=== PATIENT | male | born 1995 | race African-American/Black ===

== ENCOUNTER 2016-08-05 14:11 | Emergency (ER) | payer SELFPAY ==
[~2016-08-05] VITALS: Ht 182.9 cm; Wt 100.0 kg
[2016-08-05 14:13] VITALS: BP 139/90; PULSE 86; RESP 20; TEMP 100; O2SAT 98
[2016-08-05] MEDS ORDERED: ALBU0.08 NEB ×2 (15:39→17:12)
--- NOTE | 2016-08-05 15:55 | PD ---
HPI Chief Complaint: Cold / Flu Symptoms Time Seen by Provider: 15:53 Travel History International Travel<30 days: No Contact w/Intl Traveler<30days: No Traveled to known affect area: No History of Present Illness HPI 21-year-old male presents to the emergency department for evaluation of flulike symptoms that started 2 days ago. Patient reports cough, congestion, intermittent fevers, body aches. He has reports sore throat. He denies any chest pain. No abdominal pain. No nausea or vomiting. He has no chronic medical problems and takes no prescribed medications. Patient did not get the flu vaccination this season. He denies any other complaints. PFSH Past Medical History Hx Anticoagulant Therapy: No Asthma: Yes Autoimmune Disease: No Cardiovascular Problems: No Chemotherapy: No Cerebrovascular Accident: No Diabetes: No Diminished Hearing: No Genitourinary: No Musculoskeletal: No Neurologic: No Psychiatric: No Respiratory: No Immunizations Current: Yes Past Surgical History Hysterectomy: No Other Surgery: No Social History Alcohol Use: Yes (OCC) Tobacco Use: Yes (2-3 CIG ) Substance Use: No Allergies-Medications (Allergen,Severity, Reaction): Coded Allergies: No Known Allergies (Verified , 08/05/16) Reported Meds & Prescriptions Reported Meds & Active Scripts Active Tamiflu (Oseltamivir Phosphate) 75 Mg Cap 75 Mg PO BID 5 Days Reported Albuterol Neb (Albuterol Sulfate) Unknown Strength Neb Unknown Dose NEB Q4HR NEB PRN Review of Systems Except as stated in HPI: all other systems reviewed are Neg Physical Exam Narrative GENERAL: Well-developed well-nourished male patient, ambulatory. Temp is 100.0. SKIN: Warm and dry. HEAD: Normocephalic. Atraumatic. ENT: Mucosa pink and moist. No erythema or exudates. No uvular edema. No uvular , palatal, or tonsillar deviation. Airway patent. Nasal turbinates appear normal without nasal blood, purulent drainage or septal hematoma. Bilateral tympanic membranes are clear without erythema or perforation. EYES: No scleral icterus. No injection or drainage. NECK: Supple, trachea midline. No JVD or lymphadenopathy. CARDIOVASCULAR: Regular rate and rhythm without murmurs, gallops, or rubs. RESPIRATORY: Breath sounds equal bilaterally. No accessory muscle use. Lungs sounds are clear to auscultation. GASTROINTESTINAL: Abdomen soft, non-tender, nondistended. MUSCULOSKELETAL: No cyanosis, or edema. BACK: Nontender without obvious deformity. No CVA tenderness. Data Data Last Documented VS Vital Signs Date Time Temp Pulse Resp B/P Pulse Ox O2 Delivery O2 Flow Rate FiO2 08/05/16 17:10 17 08/05/16 14:13 100.0 86 139/90 98 Room Air Orders Ibuprofen (Motrin) (08/05/16 16:00) Influenzae A/B Antigen (08/05/16 15:53) Group A Rapid Strep Screen (08/05/16 15:53) Chest, Single Ap (08/05/16 ) Strep Culture (Group A) (08/05/16 16:00) MDM Medical Decision Making Medical Screen Exam Complete: Yes Emergency Medical Condition: Yes Medical Record Reviewed: Yes Interpretation(s) Last Impressions Chest X-Ray 08/05/16 0000 Signed Impressions: Service Date/Time: Friday, August 05, 2016 16:02 - CONCLUSION: No acute findings. Heart size appears mildly enlarged. Pankaj Arroyo MD Differential Diagnosis Influenza versus strep pharyngitis versus URI versus pneumonia Narrative Course 21-year-old male presents to the emergency Department for medication flulike symptoms for 2 days. Strep swab, influenza swab, chest x-ray are ordered and pending. Strep swab is negative. Influenza is positive for influenza A. Chest x-ray shows no acute disease. Patient will be discharged with a prescription for Tamiflu. He is instructed to take Tylenol/Ibuprofen OTC as needed and follow up with a primary care physician. Patient is also requesting refill of albuterol for his nebulizer machine. The patient was discharged in stable condition with instructions, including return instructions and follow up instructions. Diagnosis Primary Impression: Influenza A Referrals: Primary Care Physician call for appointment Patient Instructions: General Instructions, Influenza (ED) Departure Forms: Tests/Procedures, Work Release Enter return to work date: Aug 08, 2016 Additional Instructions: Take Tamiflu as directed until gone. Tylenol/ibuprofen for pain/fever. Drink plenty of fluids. Follow-up with your primary care physician. Return to the emergency department for any acute worsening of symptoms. Med/Other Pt SpecificInfo: Prescription(s) given Scripts Albuterol Neb 2.5 Mg/3 Ml Neb2.5 Mg NEB Q4HR NEB PRN (SOB/WHEEZING) #60 NEBULE Ref 0 While awake Prov:Haley Wellington 08/05/16 Oseltamivir (Tamiflu)75 Mg Cap75 Mg PO BID 5 Days Ref 0 Prov:Haley Wellington 08/05/16 Disposition: 01 DISCHARGE HOME Condition: Stable Haley Wellington Aug 05, 2016 15:55
[2016-08-05] MEDS ORDERED: IBUPROFEN 800 MG TAB PO ONE (16:00)
--- NOTE | 2016-08-05 16:42 | RADRPT ---
EXAM DATE/TIME: 08/05/2016 16:02 [facility] COMPARISON: No previous studies available for comparison. INDICATIONS : Flu symptoms. Congestion. MEDICAL HISTORY : None. SURGICAL HISTORY : None. ENCOUNTER: Initial ACUITY: 3 days PAIN SCORE: 6/10 LOCATION: Bilateral chest FINDINGS: A single view of the chest demonstrates the lungs to be symmetrically aerated without evidence of mas s, infiltrate or effusion. The cardiomediastinal contours are prominent but stable. Osseous structur es are intact. CONCLUSION: No acute findings. Heart size appears mildly enlarged. Pankaj Arroyo MD on August 05, 2016 at 16:40 Board Certified Radiologist. This report was verified electronically.
[2016-08-05] MEDS ORDERED: OSEL75 PO (17:09)
[2016-08-05 17:10] VITALS: RESP 17
== END 2016-08-05 17:49 | disposition home or self-care (01) ==
LOC: NEPB 14:11
DX: Z72.0 Tobacco use (principal); J10.89 Influenza due to other identified influenza virus with other manifestations
CPT/HCPCS: 71010; 87081; 87804; 87880; 99283

== ENCOUNTER 2017-01-01 22:09 | Emergency (ER) | payer SELFPAY ==
[~2017-01-01] VITALS: Ht 182.9 cm; Wt 115.4 kg
[~2017-01-01 22:09] MED LIST: ALBU0.08 NEB; OSEL75 PO
[2017-01-01 22:14] VITALS: BP 132/70; PULSE 78; RESP 14; TEMP 98.4; O2SAT 97
--- NOTE | 2017-01-01 23:13 | PD ---
HPI Chief Complaint: Cold / Flu Symptoms Time Seen by Provider: 23:04 Travel History International Travel<30 days: No Contact w/Intl Traveler<30days: No Traveled to known affect area: No History of Present Illness HPI The patient is a 21-year-old male that complains of a cough, sore throat and rhinorrhea for one day. He states he took some Motrin and Tylenol and feels much better now but his mother told him to come in and be seen. He denies any fever, nausea, vomiting or diarrhea. He denies any chest pain or shortness of breath. He denies any wheezing. He does not smoke and has no major medical problems. PFSH Past Medical History Hx Anticoagulant Therapy: No Asthma: Yes Autoimmune Disease: No Cardiovascular Problems: No Chemotherapy: No Cerebrovascular Accident: No Diabetes: No Diminished Hearing: No Genitourinary: No Musculoskeletal: No Neurologic: No Psychiatric: No Respiratory: No Immunizations Current: Yes Tetanus Vaccination: > 5 Years Influenza Vaccination: No Past Surgical History Hysterectomy: No Other Surgery: No Social History Alcohol Use: No (QUIT AUGUST 2016) Tobacco Use: No (QUIT MAY 2016) Substance Use: No Allergies-Medications (Allergen,Severity, Reaction): Coded Allergies: No Known Allergies (Verified , 01/01/17) Reported Meds & Prescriptions Reported Meds & Active Scripts Active No Active Prescriptions or Reported Medications Review of Systems Except as stated in HPI: all other systems reviewed are Neg Physical Exam Narrative GENERAL: Well-nourished, well-developed patient in no respiratory distress. His vital signs are normal. SKIN: Focused skin assessment warm/dry. HEAD: Normocephalic. EYES: No scleral icterus. No injection or drainage. NECK: Supple, trachea midline. No JVD or lymphadenopathy. CARDIOVASCULAR: Regular rate and rhythm without murmurs, gallops, or rubs. RESPIRATORY: Breath sounds equal bilaterally. No accessory muscle use. Lungs clear to auscultation bilaterally. GASTROINTESTINAL: Abdomen soft, non-tender, nondistended. No guarding or rebound is present. MUSCULOSKELETAL: No cyanosis, or edema. BACK: Nontender without obvious deformity. No CVA tenderness. ENT: His throat is minimally erythematous, there is no exudate nor abscess present. Data Data Last Documented VS Vital Signs Date Time Temp Pulse Resp B/P (MAP) Pulse Ox O2 Delivery O2 Flow Rate FiO2 01/01/17 23:05 Room Air 01/01/17 22:14 98.4 78 14 132/70 (90) 97 Orders Orders Group A Rapid Strep Screen (01/01/17 23:04) Strep Culture (Group A) (01/01/17 23:02) MDM Medical Decision Making Medical Screen Exam Complete: Yes Emergency Medical Condition: Yes Medical Record Reviewed: Yes Interpretation(s) The rapid strep test is negative for group A strep antigen. Differential Diagnosis Viral upper respiratory infection, strep throat, viral pharyngitis, pneumonia- highly unlikely Narrative Course The patient appears to have a viral upper respiratory infection. He will increase his fluid intake and take the Advil and Tylenol that he purchased earlier which have seemed to work well for him thus far. He needs to follow-up with his primary care physician next week. The patient clinically does not have a strep throat, his throat appears viral. Diagnosis Primary Impression: Viral upper respiratory infection Additional Instructions: Drink plenty of liquids, rest and we will write you a work excuse to return on . Continue the Advil and Tylenol that he purchased, these appear to work well for you. Med/Other Pt SpecificInfo: No Change to Meds Scripts No Active Prescriptions or Reported Meds Disposition: 01 DISCHARGE HOME Condition: Stable Jaycob Lucero MD Jan 01, 2017 23:13
== END 2017-01-02 00:07 | disposition home or self-care (01) ==
LOC: PHED 22:09
DX: J02.9 Acute pharyngitis, unspecified (principal); Z87.891 Personal history of nicotine dependence
CPT/HCPCS: 87081; 87880; 99283

== ENCOUNTER 2017-08-09 08:52 | Emergency (ER) | payer OTHER ==
[~2017-08-09] VITALS: Ht 182.9 cm; Wt 105.0 kg
[2017-08-09 08:55] VITALS: BP 147/89; PULSE 72; RESP 16; TEMP 98.2; O2SAT 99
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
[2017-08-09] MEDS ORDERED: ORPHENADRINE INJ 60 MG/2 ML AMP IM ONE (09:15)
[2017-08-09] MEDS ORDERED: KETOROLAC TROMETHAMINE 60 MG/2 ML (IM) VIAL IM ONE (09:15)
[2017-08-09] MEDS ORDERED: CYCL10TA PO (09:20)
[2017-08-09] MEDS ORDERED: KETO10 PO (09:20)
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
== END 2017-08-09 11:04 | disposition home or self-care (01) ==
LOC: NEPD 08:52
DX: S33.5XXA Sprain of ligaments of lumbar spine, initial encounter (principal); V48.6XXA Car passenger injured in noncollision transport accident in traffic accident, initial encounter
CPT/HCPCS: 72072; 72100; 96372; 99283; J1885; J2360